=== PATIENT | male | born 1935 | race Caucasian/White ===

== ENCOUNTER 2016-10-21 00:24 | Inpatient (IN) | payer OTHER ==
[~2016-10-21] VITALS: Ht 182.9 cm; Wt 90.0 kg
[~2016-10-21 00:24] MED LIST: COMBIVIR1 TAB PO; FLONASE AL50 MCG/ACT IN; OMEPRAZOLE20 M1 PO; SINGULAIR10 MG PO
--- NOTE | 2016-10-21 04:35 | DIAGNOSTIC IMAGING REPORT ---
PROCEDURE: US ABDOMEN ULTRASOUND-LIMITED INDICATION: RUQ PAIN TECHNIQUE: Hutchins scale and color Doppler sonographic images of the abdomen were obtained. COMPARISON: CT abdomen/pelvis 07/07/2016 FINDINGS: There are gallstones in the gallbladder fundus with gallbladder wall thickening (4 mm) and gallbladder wall hyperemia. Normal liver. Head of the pancreas is normal. The remainder of the pancreas is obscured by overlying gas. Aorta and IVC are patent. Normal hepatopetal flow. Normal right kidney measures 10.9 cm. IMPRESSION: 1. Gallstones with gallbladder wall thickening and hyperemia, suspicious for acute cholecystitis 2. Results discussed with Dr. Cheema
--- NOTE | 2016-10-21 04:44 | ED NURSING NOTES ---
Clinical Report - Nurses [facility] [address] [place] [address] 10/21/2016 0:24 Patient: PIOTR CRAWLEY TRIAGE Triage time 00:45 Oct 21 2016. Acuity: LEVEL 3. Chief Complaint: ABDOMINAL PAIN, NAUSEA and VOMITING. Alert. CARLOS COMA SCORE: Carlos Coma Scale: 15- eyes open spontaneously (4); best verbal response- oriented x 4 (5); best motor response- obeys commands (6). --01:07 Alvin Powell R.N. 00:45 10/21/16. BP: 183/84. HR: 51. RR: 18. O2 saturation: 97%. Temp: 98.4 F (oral). Pain level now: 7/10. Additional comments: Abdominal Pain. --01:07 Alvin Powell R.N. Weight: 86.1 kg stated. Height/Length: 72 inches Per Patient. BMI: 25.8. --00:45 Alvin Powell R.N. Medications Omeprazole Oral 40 mg, daily. --00:51 Alvin Powell R.N. Tums Oral, as needed. --00:52 Alvin Powell R.N. Montelukast Sodium Oral 10 mg, at bedtime. --00:53 Alvin Powell R.N. Diane-[place] Plus Day/Night Oral. --00:55 Alvin Powell R.N. Medication/allergy information source: the patient. --01:07 Alvin Powell R.N. Allergies Penicillins. Definite Moderate(hives) --00:57 Alvin Powell R.N. History Arrived by private vehicle. Historian: patient. Unaccompanied. Primary physician (Chanel Martin). ( Abdominal Pain associated with nausea. Pt states that he had similar pain over a year ago and was told that he had cholelithiasis but the surgeon wouldn't do surgery because his HR was too slow. Today he ate donuts for breakfast and italian fries about 8 hours ago and two pieces of fried chicken.). This started yesterday. Onset. (about 8 hours ago). He has had nausea and abdominal pain. Treatment CUSTOMER QUALITY ENGINEER: Symptoms did not improve after treatment. (Omeprazole and AlkaSeltzer). PAST MEDICAL HX: Immunizations: up-to-date. SOCIAL HX: Never smoker. Alcohol use. Last drink was 6 years ago. No drug use. No recent travel. No infectious disease exposure. ABUSE ASSESSMENT: No report of abuse. FALL RISK ASSESSMENT: Fall risk assessment completed. No fall risk identified. NUTRITIONAL RISK ASSESSMENT: The nutritional risk assessment revealed no deficiencies. FUNCTIONAL ASSESSMENT: Functional assessment: no impairments noted. LEARNING NEEDS ASSESSMENT: The learning needs assessment revealed no barriers. SKIN INTEGRITY ASSESSMENT: Skin integrity risk assessment completed. No skin integrity risk identified. --01:07 Alvin Powell R.N. PROBLEMS: Esophageal Varices [Chronic]. --00:48 Alvin Powell R.N. Nausea. Cholelithiasis. Abdominal Pain. Vomiting. Copd. --00:48 Alvin Powell R.N. BPH. --01:07 Alvin Powell R.N. ADDITIONAL SURGERIES: Duodenal Tumors removed . Esophageal Dilatation [2016]. --00:49 Alvin Powell R.N. Interventions ID and allergy band on patient. To treatment room. --01:07 Alvin Powell R.N. PHYSICAL ASSESSMENT Ambulatory to room. GENERAL / NEURO / PSYCH: Alert. Oriented X 4. HEENT: Mucous membranes are pink. RESPIRATORY: Respirations not labored. CVS: Cardiac rhythm: sinus bradycardia; occasional ectopic beats. Capillary refill less than 2 seconds. GI / : The patient has had nausea. Abdominal tenderness. SKIN: Skin is warm and dry. --01:09 Alvin Powell R.N. NURSING PROGRESS NOTES 00:58 10/21/2016 Zofran ODT (Ondansetron) PO Oral Disintegrating Tablets 4 mg given. Allergies verified and confirmed 5 rights. --01:08 Alvin Powell R.N. Monitoring of patient in place. Patient gowned. Reassurance given. Patient identifiers checked. Call light placed in reach. Side rails up x 1. Bed placed in lowest position. Brakes of bed on. Patient ready for evaluation- chart flagged and ED physician notified. --01:09 Alvin Powell R.N. 01:18 10/21/2016 Site #1 started via IV in the right wrist with an 20g angiocath, with aseptic technique and good blood return; one attempt. Blood drawn: rainbow set. Labeled in the presence of the patient and sent to the lab. Saline lock flushed with 10 mL saline. --01:21 Alvin Palacios R.N. 01:19 10/21/2016 Demerol (Meperidine HCl) IVP 25 mg given over 2 minute(s) via site #1. Allergies verified and confirmed 5 rights. IV patency established. IV site checked: no pain, redness, or swelling. IV flushed thoroughly pre- and post-medication administration. --01:21 Alvin Palacios R.N. ( Report received from Alvin Monae). --01:35 Tai Frances R.N. EKG time: (0142). EKG was ordered, performed by a tech and shown to the ED physician. --01:43 Julian Espinoza, ER Wire Winding Machine Operator 01:59 10/21/16. BP: 180/81. HR: 45. RR: 18. O2 saturation: 99%. --01:59 Tai Frances R.N. 02:14 10/21/2016 Zofran (Ondansetron HCl) IVP 4 mg given over 2 minute(s) via site #1. Allergies verified and confirmed 5 rights. IV patency established. IV site checked: no pain, redness, or swelling. IV flushed thoroughly pre- and post-medication administration. IVP given by RN. --02:14 Tai Frances R.N. 03:59 10/21/2016 Demerol (Meperidine HCl) IVP 25 mg given over 2 minute(s) via site #1. Allergies verified and confirmed 5 rights. IV patency established. IV site checked: no pain, redness, or swelling. IV flushed thoroughly pre- and post-medication administration. IVP given by RN. --03:59 Tai Frances R.N. 04:00 10/21/2016 PROMETHAZINE IVP 25 mg given over 2 minute(s) via site #1. Allergies verified and confirmed 5 rights. IV patency established. IV site checked: no pain, redness, or swelling. IV flushed thoroughly pre- and post-medication administration. IVP given by RN. --04:00 Tai Frances R.N. 03:06 10/21/16. BP: 160/97. HR: 49. O2 saturation: 100%. --04:27 Tai Frances R.N. 04:07 10/21/16. BP: 163/78. HR: 53. O2 saturation: 99%. --04:28 Tai Frances R.N. 04:56 10/21/2016 Started 500 mg of Flagyl (MetroNIDAZOLE in NaCl) IVPB in bag #1 100 mL; at 100 mL/hr over 1 hour(s) via site #1 via IV pump. Allergies verified and confirmed 5 rights. IV patency established. IV site checked: no pain, redness, or swelling. IV flushed thoroughly pre- and post-medication administration. --04:56 Tai Frances R.N. 05:17 10/21/2016 Started 500 mg of Levofloxacin IVPB in bag #1 100 mL; at 100 mL/hr over 1 hour(s) via site #1 via IV pump. Allergies verified and confirmed 5 rights. IV patency established. IV site checked: no pain, redness, or swelling. IV flushed thoroughly pre- and post-medication administration. --05:17 Tai Frances R.N. 05:22 10/21/16. BP: 115/61. --05:32 Tai Frances R.N. 05:34 10/21/2016 Started bag #1 1000 mL IV Fluids IV D5W 1/2 NS AND KCL 20 MEQ (KCl-NaCl in D5W); at 150 mL/hr over 10 hour(s) via site #1 via IV pump. Allergies verified and confirmed 5 rights. IV patency established. IV site checked: no pain, redness, or swelling. IV flushed thoroughly pre- and post-medication administration. --05:34 Tai Frances R.N. DISPOSITION / DISCHARGE No learning barriers present. Admitted. Report was given to a nurse via a phone call. All questions were answered. Report was acknowledged. Patient's personal items include: shirt, pants, glasses, contacts and wallet; items were placed in belongings bag, given to the patient and transported with the patient. --05:28 Tai Frances R.N. 05:31 10/21/16. BP: 128/69. HR: 51. RR: 16. O2 saturation: 98%. Temp: 98.9 F. Pain level now 0/10. --05:32 Tai Frances R.N. Departure time: 0539. ( Report given to RN to start d5 1/2ns with 20 of K on arrival to floor). --05:55 Tai Frances R.N. Locked/Released at 10/23/2016 10:33 by Angie Deleon R.N.
--- NOTE | 2016-10-21 04:44 | ED CLINICAL REPORT ---
Clinical Report - Physicians/Mid Levels [facility] [address] [place] [address] 10/21/2016 0:24 [id number] Time Seen: 00:55; initial patient contact. Arrived- By private vehicle. Historian- patient. HISTORY OF PRESENT ILLNESS Chief Complaint: ABDOMINAL PAIN. At its maximum, severity described as moderate. When seen in the E.D., severity described as moderate. Modifying factors- worsened by food. Not relieved by anything. This started just prior to arrival. It is described as "pain". No radiation. It is described as located in the right upper quadrant. The patient has had nausea and vomiting. No loss of appetite or diarrhea. No recent travel. Similar symptoms previously: Once. Recent medical care: The patient was seen recently by a health care provider (Was scheduled for Lap [facility] last month due to cholelithiasis, cancelled due to heart-block). REVIEW OF SYSTEMS No constipation, hematemesis, difficulty with urination, pain with urination or fever. No chills. All systems otherwise negative, except as recorded above. PAST HISTORY Esophageal Varices Nausea. Cholelithiasis. Abdominal Pain. Vomiting. Copd. BPH. SURGERIES: Duodenal Tumors removed . Esophageal Dilatation. SOCIAL HISTORY Never smoker. No alcohol use or drug use. ADDITIONAL NOTES The nursing notes have been reviewed with agreement regarding the chief complaint, PMH and patient medications and allergies. PHYSICAL EXAM Vital Signs: 10/21/2016 00:45 BP: 183/84. HR: 51. RR: 18. O2 saturation: 97%. Temp: 98.4 F. Pain level now: 7/10. Have been reviewed. Hypertensive. Bradycardic. Respiratory rate normal. Temperature normal. Oxygen saturation normal. Appearance: Alert. Oriented X3. No acute distress. Eyes: Eyes normal inspection. No scleral icterus. ENT: Pharynx normal. CVS: Bradycardia. Heart sounds normal. Rhythm normal. Respiratory: No respiratory distress. Breath sounds normal. Chest nontender. Abdomen: Soft. Moderate tenderness in the right upper quadrant. Positive Arce's sign. No guarding or rebound tenderness. Bowel sounds normal. No organomegaly. No mass. Back: Normal inspection. No CVA tenderness. Skin: Normal skin color. Extremities: No lower extremity edema. Neuro: Oriented X 3. LABS, X-RAYS, AND EKG EKG: EKG time: (0142). Wide-complex bradycardia (ventricular rate 52). Sinus bradycardia. Normal P waves. First-degree atrioventricular block. Wide QRS. RBBB. Left axis deviation. Normal ST and T waves, QT and QTc. EKG unchanged when compared with prior EKG. (Aug 20 2016). The study has been interpreted contemporaneously by me. The study has been independently viewed by me. The EKG appears to be a good tracing. Interpretation time: 0142. Abdominal Sonogram: (1. Gallstones with gallbladder wall thickening and hyperemia, suspicious for acute cholecystitis). Study included the gallbladder. The study was interpreted by the radiologist and discussed with the radiologist. Interpretation time: 04:40. Laboratory Tests: UA-Culture if indicated: (YARA: 10/21/2016 01:47) ( [facility] [place] [facility] 02:05) Final results Test Result Flag Units (Reference) URINE COLOR YELLOW URINE APPEARANCE CLEAR URINE GLUCOSE NEGATIVE (NEGATIVE) URINE BILIRUBIN NEGATIVE (NEGATIVE) URINE KETONE NEGATIVE (NEGATIVE) URINE SPECIFIC GRAVITY 1.010 (1.010-1.030) URINE PH 8.5 H (5.0-8.0) URINE PROTEIN NEGATIVE (NEGATIVE) URINE UROBILINOGEN 1.0 EU/dL (0.2-1.0) URINE NITRITE NEGATIVE (NEGATIVE) URINE BLOOD NEGATIVE (NEGATIVE) URINE LEUK ESTERASE NEGATIVE (NEGATIVE) URINE RBC 0-1 rbc/hpf (0-1) URINE WBC 0-1 wbc/hpf (0-1) URINE EPITHELIAL CELLS 0-1 EPI/hpf (0-5) URINE BACTERIA NONE SEEN (NONE SEEN) URINE COMMENT CULT NOT INDICATED URINE CULTURES ARE SET-UP BASED ON THE FOLLOWING CRITERIA:POSITIVE NITRITEPOSITIVE LEUKOCYTE ESTERASEGREATER THAN 10 WHITE BLOOD CELLSMODERATE (2+) OR GREATER BACTERIA CBC w Diff: (YARA: 10/21/2016 01:15) ( [facility] 10/21/2016 01:29) Final results Test Result Flag Units (Reference) WHITE BLOOD COUNT 5.9 K/uL (4.5-11.5) RED BLOOD COUNT 4.85 M/uL (4.50-5.90) HEMOGLOBIN 13.0 L gm/dL (13.5-17.5) HEMATOCRIT 40.7 L % (41.0-53.0) MEAN CELL VOLUME 84 fL (80-100) MEAN CORPUSCULAR HGB 27 pg (26-34) MEAN CORPUSCULAR HGB CONC 32 g/dL (31-37) RED CELL DISTRIBUTION WIDTH 18.0 H % (11.6-14.8) PLATELET COUNT 271 K/uL (150-400) NEUTROPHIL % 51.2 % (50-75) LYMPH % 34.6 % (25-40) MONO % 8.4 % (3-14) EOSINOPHIL % 5.1 H % (0-4) BASOPHIL % 0.7 % (0-2) CMP: (YARA: 10/21/2016 01:15) ( Msg[facility]cv[facility] 10/21/2016 01:42) Final results Test Result Flag Units (Reference) GLUCOSE 105 mg/dL (70-110) BUN 13 mg/dL (7-18) CREATININE 1.0 mg/dL (0.6-1.3) Estimated GFR >60 mL/min Estimated GFR- >60 mL/min Note: Persistent reduction over 3 months in eGFR<60 mL/min/1.73 m2 defines CKD. Patients with eGFR values>=60 mL/min/1.73 m2 may also have CKD if evidence ofpersistent proteinuria. Additional information may be foundat www.kidney.org. SODIUM 143 mmol/L (136-145) POTASSIUM 3.9 mmol/L (3.5-5.1) CHLORIDE 109 H mmol/L (98-107) CARBON DIOXIDE 24 mmol/L (21-32) CALCIUM 8.5 mg/dL (8.5-10.1) TOTAL PROTEIN 6.3 L g/dL (6.4-8.2) ALBUMIN 3.2 L g/dL (3.3-5.0) BILIRUBIN, TOTAL 0.3 mg/dL (0.0-1.0) ALKALINE PHOSPHATASE 97 U/L (46-116) AST (SGOT) 12 L U/L (15-37) ALT (SGPT) 17 U/L (12-78) LIPASE 749 H U/L (73-393) AMYLASE 104 U/L (25-115) . PROGRESS AND PROCEDURES Course of Care: 10/21/2016 04:07 BP: 163/78. HR: 53. O2 saturation: 99%. Vital Signs: have been reviewed. Hypertensive. Bradycardic. Oxygen saturation normal. Discussed case with on-call health care provider, (call returned 04:43 Dr. Topete. Admit and start Abx and will take to OR later.). Reviewed test results and need for additional work-up. Orders dictated to me. Health care provider will see patient in hospital. Discussed case with on-call health care provider, (call placed call placed 04:50 Dr. Moulton made aware of Dr. Martin's patient being admitted for surgery as a courtesy.). Disposition: Admitted to Acute Care. Condition: good. Admit decision based on need for IV antibiotics, pain control and surgery. CLINICAL IMPRESSION Acute cholecystitis with cholelithiasis. No obstruction or choledocholithiasis. Abnormal EKG: left axis deviation, first degree heart block and right bundle branch block. Sinus bradycardia. INSTRUCTIONS Follow-up: Screening today revealed the patient's blood pressure to be in the hypertensive range. The patient was admitted and blood pressure will be managed during the admission. (Electronically signed by Jere Cheema Dr. 10/21/2016 4:52)
--- NOTE | 2016-10-21 04:44 | ED ORDER SUMMARY ---
..... Patient: PIOTR CRAWLEY OrderSheet [facility] VisitID: [id number] [place] [address] 80y, M Registration Date/Time: 10/21/2016 ORDER SHEET Weight: 86.1 kg (stated) Allergies: Penicillins GENERAL ORDERS: CBC w Diff Urgent (00:56 10/21/2016 Librado Alberto) (Ack 0:59 CHagerty ER Hogshead Mat Assembler) (1:21 JQuivey R.N.) CMP Urgent (00:56 10/21/2016 Librado Alberto) (Ack 0:59 CHagerty ER Hogshead Mat Assembler) (1:21 JQuivey R.N.) UA-Culture if indicated Urgent (00:56 10/21/2016 Librado Alberto) (Ack 0:59 CHagerty ER Hogshead Mat Assembler) (3:35 CHagerty ER Hogshead Mat Assembler) Amylase Urgent (00:56 10/21/2016 Librado Alberto) (Ack 0:59 CHagerty ER Hogshead Mat Assembler) (1:21 JQuivey R.N.) Lipase Urgent (00:56 10/21/2016 Librado Alberto) (Ack 0:59 CHagerty ER Hogshead Mat Assembler) (1:21 JQuivey R.N.) US Abdomen Limited (Yes) Urgent (02:13 10/21/2016 Librado Alberto) (Ack 2:16 CHagerty ER Hogshead Mat Assembler) (3:35 CHagerty ER Hogshead Mat Assembler) NPO (04:51 10/21/2016 Librado Alberto) (5:21 DBeyer R.N.) MEDICATION ORDERS: Zofran ODT PO 4 mg (NOW) (00:55 10/21/2016 Librado Alberto) (1:08 Kinga R.N.) Promethazine IV 25 mg (HIGH ALERT MEDICATION, NOW) (03:53 10/21/2016 Librado Alberto) (4:00 Argeliaer R.N.) IV FLUIDS: IV Saline Lock (00:56 10/21/2016 Librado Alberto) (Ack 1:14 JQuivey R.N.) (1:21 JQuivey R.N.) Demerol IV 25 mg (HIGH ALERT MEDICATION, NOW) (01:16 10/21/2016 Librado Alberto) (1:21 Geraldo McdermottN.) Zofran IV 4 mg (NOW) (02:10 10/21/2016 Librado Alberto) (2:14 Jay Monae.N.) Demerol IV 25 mg (HIGH ALERT MEDICATION, NOW) (03:53 10/21/2016 Librado Alberto) (3:59 Jay Monae.N.) Levofloxacin IV 500 mg/100mL (NOW) (04:41 10/21/2016 Librado Alberto) (5:17 Jay Monae.N.) Flagyl IV 500 mg/100mL (NOW) (04:41 10/21/2016 Librado Alberto) (4:56 Jay Monae.N.) IV D5W 1/2 NS and KCl 20 mEq : initial bolus none -, then 150 mL/hr for X1 (NOW) (05:24 10/21/2016 Librado Alberto) (5:34 Jay R.N.) ORDER SHEET NOTES: [Electronically signed by Jere Cheema Dr. (04:52 10/21/2016)] [Electronically signed by Angie Deleon R.N. (10:33 10/23/2016)] [Electronically locked/signed by Angie Deleon R.N. (10:33 10/23/2016)]
--- NOTE | 2016-10-21 04:44 | ED ORDER SUMMARY ---
..... Patient: PIOTR CRAWLEY OrderSheet [facility] VisitID: [id number] [place] [address] 80y, M Registration Date/Time: 10/21/2016 ORDER SHEET Weight: 86.1 kg (stated) Allergies: Penicillins GENERAL ORDERS: CBC w Diff Urgent (00:56 10/21/2016 Librado Alberto) (Ack 0:59 CHagerty ER Export Administrator) (1:21 JQuivey R.N.) CMP Urgent (00:56 10/21/2016 Librado Alberto) (Ack 0:59 CHagerty ER Export Administrator) (1:21 JQuivey R.N.) UA-Culture if indicated Urgent (00:56 10/21/2016 Librado Alberto) (Ack 0:59 CHagerty ER Export Administrator) (3:35 CHagerty ER Export Administrator) Amylase Urgent (00:56 10/21/2016 Librado Alberto) (Ack 0:59 CHagerty ER Export Administrator) (1:21 JQuivey R.N.) Lipase Urgent (00:56 10/21/2016 Librado Alberto) (Ack 0:59 CHagerty ER Export Administrator) (1:21 JQuivey R.N.) US Abdomen Limited (Yes) Urgent (02:13 10/21/2016 Librado Alberto) (Ack 2:16 CHagerty ER Export Administrator) (3:35 CHagerty ER Export Administrator) NPO (04:51 10/21/2016 Librado Alberto) (5:21 DBeyer R.N.) MEDICATION ORDERS: Zofran ODT PO 4 mg (NOW) (00:55 10/21/2016 Librado Alberto) (1:08 Kinga R.N.) Promethazine IV 25 mg (HIGH ALERT MEDICATION, NOW) (03:53 10/21/2016 Librado Alberto) (4:00 Argeliaer R.N.) IV FLUIDS: IV Saline Lock (00:56 10/21/2016 Librado Alberto) (Ack 1:14 JQuivey R.N.) (1:21 JQuivey R.N.) Demerol IV 25 mg (HIGH ALERT MEDICATION, NOW) (01:16 10/21/2016 Librado Alberto) (1:21 Geraldo McdermottN.) Zofran IV 4 mg (NOW) (02:10 10/21/2016 Librado Alberto) (2:14 Jay Monae.N.) Demerol IV 25 mg (HIGH ALERT MEDICATION, NOW) (03:53 10/21/2016 Librado Alberto) (3:59 Jay Monae.N.) Levofloxacin IV 500 mg/100mL (NOW) (04:41 10/21/2016 Librado Alberto) (5:17 Jay Monae.N.) Flagyl IV 500 mg/100mL (NOW) (04:41 10/21/2016 Librado Alberto) (4:56 Jay Monae.N.) IV D5W 1/2 NS and KCl 20 mEq : initial bolus none -, then 150 mL/hr for X1 (NOW) (05:24 10/21/2016 Librado Alberto) (5:34 Jay R.N.) ORDER SHEET NOTES: [Electronically signed by Jere Cheema Dr. (04:52 10/21/2016)] [Electronically signed by Angie Deleon R.N. (10:33 10/23/2016)] [Electronically locked/signed by Angie Deleon R.N. (10:33 10/23/2016)]
--- NOTE | 2016-10-21 04:44 | ED NURSING NOTES ---
Clinical Report - Nurses [facility] [address] [place] [address] 10/21/2016 0:24 Patient: PIOTR CRAWLEY TRIAGE Triage time 00:45 Oct 21 2016. Acuity: LEVEL 3. Chief Complaint: ABDOMINAL PAIN, NAUSEA and VOMITING. Alert. CARLOS COMA SCORE: Carlos Coma Scale: 15- eyes open spontaneously (4); best verbal response- oriented x 4 (5); best motor response- obeys commands (6). --01:07 Alvin Powell R.N. 00:45 10/21/16. BP: 183/84. HR: 51. RR: 18. O2 saturation: 97%. Temp: 98.4 F (oral). Pain level now: 7/10. Additional comments: Abdominal Pain. --01:07 Alvin Powell R.N. Weight: 86.1 kg stated. Height/Length: 72 inches Per Patient. BMI: 25.8. --00:45 Alvin Powell R.N. Medications Omeprazole Oral 40 mg, daily. --00:51 Alvin Powell R.N. Tums Oral, as needed. --00:52 Alvin Powell R.N. Montelukast Sodium Oral 10 mg, at bedtime. --00:53 Alvin Powell R.N. [place] Plus Day/Night Oral. --00:55 Alvin Powell R.N. Medication/allergy information source: the patient. --01:07 Alvin Powell R.N. Allergies Penicillins. Definite Moderate(hives) --00:57 Alvin Powell R.N. History Arrived by private vehicle. Historian: patient. Unaccompanied. Primary physician (Chanel Martin). ( Abdominal Pain associated with nausea. Pt states that he had similar pain over a year ago and was told that he had cholelithiasis but the surgeon wouldn't do surgery because his HR was too slow. Today he ate donuts for breakfast and georgian fries about 8 hours ago and two pieces of fried chicken.). This started yesterday. Onset. (about 8 hours ago). He has had nausea and abdominal pain. Treatment ASSET MANAGER: Symptoms did not improve after treatment. (Omeprazole and AlkaSeltzer). PAST MEDICAL HX: Immunizations: up-to-date. SOCIAL HX: Never smoker. Alcohol use. Last drink was 6 years ago. No drug use. No recent travel. No infectious disease exposure. ABUSE ASSESSMENT: No report of abuse. FALL RISK ASSESSMENT: Fall risk assessment completed. No fall risk identified. NUTRITIONAL RISK ASSESSMENT: The nutritional risk assessment revealed no deficiencies. FUNCTIONAL ASSESSMENT: Functional assessment: no impairments noted. LEARNING NEEDS ASSESSMENT: The learning needs assessment revealed no barriers. SKIN INTEGRITY ASSESSMENT: Skin integrity risk assessment completed. No skin integrity risk identified. --01:07 Alvin Powell R.N. PROBLEMS: Esophageal Varices [Chronic]. --00:48 Alvin Powell R.N. Nausea. Cholelithiasis. Abdominal Pain. Vomiting. Copd. --00:48 Alvin Powell R.N. BPH. --01:07 Alvin Powell R.N. ADDITIONAL SURGERIES: Duodenal Tumors removed . Esophageal Dilatation [2016]. --00:49 Alvin Powell R.N. Interventions ID and allergy band on patient. To treatment room. --01:07 Alvin Powell R.N. PHYSICAL ASSESSMENT Ambulatory to room. GENERAL / NEURO / PSYCH: Alert. Oriented X 4. HEENT: Mucous membranes are pink. RESPIRATORY: Respirations not labored. CVS: Cardiac rhythm: sinus bradycardia; occasional ectopic beats. Capillary refill less than 2 seconds. GI / : The patient has had nausea. Abdominal tenderness. SKIN: Skin is warm and dry. --01:09 Alvin Powell R.N. NURSING PROGRESS NOTES 00:58 10/21/2016 Zofran ODT (Ondansetron) PO Oral Disintegrating Tablets 4 mg given. Allergies verified and confirmed 5 rights. --01:08 Alvin Powell R.N. Monitoring of patient in place. Patient gowned. Reassurance given. Patient identifiers checked. Call light placed in reach. Side rails up x 1. Bed placed in lowest position. Brakes of bed on. Patient ready for evaluation- chart flagged and ED physician notified. --01:09 Alvin Powell R.N. 01:18 10/21/2016 Site #1 started via IV in the right wrist with an 20g angiocath, with aseptic technique and good blood return; one attempt. Blood drawn: rainbow set. Labeled in the presence of the patient and sent to the lab. Saline lock flushed with 10 mL saline. --01:21 Alvin Palacios R.N. 01:19 10/21/2016 Demerol (Meperidine HCl) IVP 25 mg given over 2 minute(s) via site #1. Allergies verified and confirmed 5 rights. IV patency established. IV site checked: no pain, redness, or swelling. IV flushed thoroughly pre- and post-medication administration. --01:21 Alvin Palacios R.N. ( Report received from Alvin Monae). --01:35 Tai Frances R.N. EKG time: (0142). EKG was ordered, performed by a tech and shown to the ED physician. --01:43 Julian Espinoza, ER Livestock Agent 01:59 10/21/16. BP: 180/81. HR: 45. RR: 18. O2 saturation: 99%. --01:59 Tai Frances R.N. 02:14 10/21/2016 Zofran (Ondansetron HCl) IVP 4 mg given over 2 minute(s) via site #1. Allergies verified and confirmed 5 rights. IV patency established. IV site checked: no pain, redness, or swelling. IV flushed thoroughly pre- and post-medication administration. IVP given by RN. --02:14 Tai Frances R.N. 03:59 10/21/2016 Demerol (Meperidine HCl) IVP 25 mg given over 2 minute(s) via site #1. Allergies verified and confirmed 5 rights. IV patency established. IV site checked: no pain, redness, or swelling. IV flushed thoroughly pre- and post-medication administration. IVP given by RN. --03:59 Tai Frances R.N. 04:00 10/21/2016 PROMETHAZINE IVP 25 mg given over 2 minute(s) via site #1. Allergies verified and confirmed 5 rights. IV patency established. IV site checked: no pain, redness, or swelling. IV flushed thoroughly pre- and post-medication administration. IVP given by RN. --04:00 Tai Frances R.N. 03:06 10/21/16. BP: 160/97. HR: 49. O2 saturation: 100%. --04:27 Tai Frances R.N. 04:07 10/21/16. BP: 163/78. HR: 53. O2 saturation: 99%. --04:28 Tai Frances R.N. 04:56 10/21/2016 Started 500 mg of Flagyl (MetroNIDAZOLE in NaCl) IVPB in bag #1 100 mL; at 100 mL/hr over 1 hour(s) via site #1 via IV pump. Allergies verified and confirmed 5 rights. IV patency established. IV site checked: no pain, redness, or swelling. IV flushed thoroughly pre- and post-medication administration. --04:56 Tai Frances R.N. 05:17 10/21/2016 Started 500 mg of Levofloxacin IVPB in bag #1 100 mL; at 100 mL/hr over 1 hour(s) via site #1 via IV pump. Allergies verified and confirmed 5 rights. IV patency established. IV site checked: no pain, redness, or swelling. IV flushed thoroughly pre- and post-medication administration. --05:17 Tai Frances R.N. 05:22 10/21/16. BP: 115/61. --05:32 Tai Frances R.N. 05:34 10/21/2016 Started bag #1 1000 mL IV Fluids IV D5W 1/2 NS AND KCL 20 MEQ (KCl-NaCl in D5W); at 150 mL/hr over 10 hour(s) via site #1 via IV pump. Allergies verified and confirmed 5 rights. IV patency established. IV site checked: no pain, redness, or swelling. IV flushed thoroughly pre- and post-medication administration. --05:34 Tai Frances R.N. DISPOSITION / DISCHARGE No learning barriers present. Admitted. Report was given to a nurse via a phone call. All questions were answered. Report was acknowledged. Patient's personal items include: shirt, pants, glasses, contacts and wallet; items were placed in belongings bag, given to the patient and transported with the patient. --05:28 Tai Frances R.N. 05:31 10/21/16. BP: 128/69. HR: 51. RR: 16. O2 saturation: 98%. Temp: 98.9 F. Pain level now 0/10. --05:32 Tai Frances R.N. Departure time: 0539. ( Report given to RN to start d5 1/2ns with 20 of K on arrival to floor). --05:55 Tai Frances R.N. Locked/Released at 10/23/2016 10:33 by Angie Deleon R.N.
[2016-10-21 06:08] VITALS: BP 128/61
[2016-10-21] MEDS ORDERED: ALKA-SELTZER PL25 MG PO (07:37)
[2016-10-21] MEDS ORDERED: TUMS500 MG PO (07:38)
[2016-10-21 10:49] VITALS: BP 124/62
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
[2016-10-21 14:22] VITALS: BP 121/60
[2016-10-21 18:26] VITALS: BP 139/62
[2016-10-21 22:45] VITALS: BP 118/68
[2016-10-22] VITALS (10 sets, daily range): BP systolic 122–149; BP diastolic 57–73
--- NOTE | 2016-10-22 14:18 | DIAGNOSTIC IMAGING REPORT ---
PROCEDURE: XR INTRAOPERATIVE LAP TARUN INDICATION: LAPCHOLE WITH IOC TECHNIQUE: Intraoperative fluoroscopy provided for Dr. Le performing an intraoperative cholangiogram following cholecystectomy. Total fluoroscopy time 7-seconds Cumulative dose 2.1 mGy. COMPARISON: None. FINDINGS: Single intraoperative fluoroscopic spot image of the right upper quadrant of the abdomen demonstrate cannulation of the cystic duct stump and opacification of the intrahepatic and extrahepatic biliary tree. There are no filling defects. There is normal passage of contrast into the duodenum. IMPRESSION: 1. Negative intraoperative cholangiogram.
[2016-10-22] MEDS ORDERED: NORCO1 TA1 PO (14:19)
--- NOTE | 2016-10-22 14:21 | Provider's Discharge Care Plan ---
Problem, Goal, Plan Problem List 1. S/P laparoscopic cholecystectomy 2. Bifascicular block 3. Bradycardia
--- NOTE | 2016-10-22 14:21 | Provider's Discharge Care Plan ---
Problem, Goal, Plan Problem List 1. S/P laparoscopic cholecystectomy 2. Bifascicular block 3. Bradycardia
--- NOTE | 2016-10-22 21:28 | OPERATIVE REPORT ---
DATE OF SURGERY: 10/22/2016 SURGEON: Feliz Le MD GEAR INSPECTOR: Jinny Enrique III, MD PREOPERATIVE DIAGNOSIS: 1. Cholelithiasis with acute cholecystitis POSTOPERATIVE DIAGNOSIS: 1. Cholelithiasis with acute cholecystitis PROCEDURE PERFORMED: 1. Laparoscopic cholecystectomy with cholangiography ANESTHESIA: General. COMPLICATIONS: No intraoperative complications were encountered. INDICATIONS: The patient is an 80-year-old man presenting with severe unrelenting right upper quadrant abdominal pain and radiologic studies indicating acute cholecystitis. SURGICAL TECHNIQUE: The patient was taken to the operating room where a general anesthetic was administered and the patient prepped and draped in the usual sterile fashion. No Andino catheter was used; however, an orogastric tube, IV antibiotics , and sequential compression devices were in place. A local anesthetic of 0.5% Marcaine with epinephrine was utilized at each incision site. An infraumbilical incision was made and a Veress needle used to insufflate the abdominal cavity. A 10 mm cannula was passed and additional cannulae placed in the upper abdomen in the usual locations. The gallbladder was found to be tightly distended and erythematous consistent with acute cholecystitis. The gallbladder was elevated and the cystic duct meticulously dissected out, as well as the cystic artery. A clip was placed in neck of the gallbladder and fluoroscopic cholangiogram carried out demonstrating free flow into duodenum and no filling defects. The cystic duct and artery were doubly clipped and divided and the gallbladder stripped from the gallbladder fossa using electrocautery. It was placed in a specimen bag and pulled into the upper midline trocar site where it was morcellated and extracted along with its stone material. The operative site was irrigated and found be hemostatic. All blood and fluid were suctioned away and additional Marcaine was instilled and gas was evacuated. A single [id number] 2-0 Vicryl was placed in the upper midline trocar site. This midline skin sites were closed with interrupted subcuticular 4-0 Vicryl. Steri-Strips and dressings were placed at all sites. The patient left in good condition.
--- NOTE | 2016-10-22 21:28 | OPERATIVE REPORT ---
DATE OF SURGERY: 10/22/2016 SURGEON: Feliz Le MD HVAC INSTRUCTOR: Jinny Enrique III, MD PREOPERATIVE DIAGNOSIS: 1. Cholelithiasis with acute cholecystitis POSTOPERATIVE DIAGNOSIS: 1. Cholelithiasis with acute cholecystitis PROCEDURE PERFORMED: 1. Laparoscopic cholecystectomy with cholangiography ANESTHESIA: General. COMPLICATIONS: No intraoperative complications were encountered. INDICATIONS: The patient is an 80-year-old man presenting with severe unrelenting right upper quadrant abdominal pain and radiologic studies indicating acute cholecystitis. SURGICAL TECHNIQUE: The patient was taken to the operating room where a general anesthetic was administered and the patient prepped and draped in the usual sterile fashion. No Andino catheter was used; however, an orogastric tube, IV antibiotics , and sequential compression devices were in place. A local anesthetic of 0.5% Marcaine with epinephrine was utilized at each incision site. An infraumbilical incision was made and a Veress needle used to insufflate the abdominal cavity. A 10 mm cannula was passed and additional cannulae placed in the upper abdomen in the usual locations. The gallbladder was found to be tightly distended and erythematous consistent with acute cholecystitis. The gallbladder was elevated and the cystic duct meticulously dissected out, as well as the cystic artery. A clip was placed in neck of the gallbladder and fluoroscopic cholangiogram carried out demonstrating free flow into duodenum and no filling defects. The cystic duct and artery were doubly clipped and divided and the gallbladder stripped from the gallbladder fossa using electrocautery. It was placed in a specimen bag and pulled into the upper midline trocar site where it was morcellated and extracted along with its stone material. The operative site was irrigated and found be hemostatic. All blood and fluid were suctioned away and additional Marcaine was instilled and gas was evacuated. A single [id number] 2-0 Vicryl was placed in the upper midline trocar site. This midline skin sites were closed with interrupted subcuticular 4-0 Vicryl. Steri-Strips and dressings were placed at all sites. The patient left in good condition.
[2016-10-23 02:10] VITALS: BP 131/68
[2016-10-23 06:49] VITALS: BP 137/77
[2016-10-23 07:25] VITALS: BP 130/69
--- NOTE | 2016-10-23 10:34 | ED DISCHARGE INSTRUCTIONS ---
Patient: PIOTR CRAWLEY General Instructions [facility] VisitID: [id number] [place] [address] 80y, M Registration Date/Time: 10/21/2016 Acute cholecystitis with cholelithiasis. No obstruction or choledocholithiasis. Abnormal EKG: left axis deviation, first degree heart block and right bundle branch block. Sinus bradycardia. INSTRUCTIONS Follow-up: Screening today revealed the patient's blood pressure to be in the hypertensive range. The patient was admitted and blood pressure will be managed during the admission. ADDITIONAL INFORMATION Cholecystitis (Confirmed) Your abdominal pain is due to an inflammation and possible infection in the gallbladder. The gallbladder is a small sac under the liver, which stores and releases bile. Bile is a fluid that aids in the digestion of fat. A gallstone may form in this sac and block the passage of bile fluid. This can lead to mild to severe abdominal pain, fever, nausea and vomiting. Home Care: Rest in bed and follow a clear liquid diet until the pain, nausea and vomiting have gone away. Antibiotics and other medicine may be prescribed. Take this exactly as directed. You may use ibuprofen (Motrin, Advil) or naproxen (Naprosyn, Aleve) to control pain, unless another medicine was prescribed. [NOTE: If you have chronic kidney disease or ever had a stomach ulcer or GI bleeding, talk with your doctor before using these medicines.] Fat in your diet makes the gallbladder contract and may cause increased pain. Therefore, avoid fat in your diet over the next two days and follow a low-fat diet thereafter. Follow Up an infection in the gallbladder is a serious problem and must be watched carefully. See your doctor or return here for another exam in the next 1 to 2 days, or as directed by our staff. Once cholecystitis has occurred, removal of the gallbladder is usually required to prevent a recurrence. You can discuss this at your follow-up visit. Get Prompt Medical Attention if any of the following occur: Repeated vomiting Swelling of the abdomen Pain that lasts over 6 hours Fever of 100.4F (38C) or higher, or as directed by your healthcare provider Weakness, dizziness or fainting Dark urine or light colored stools Yellow color of the skin or eyes Chest, arm, back, neck or jaw pain You have been given the following additional information: Cholecystitis, Confirmed (Electronically signed by Jere Cheema Dr. 10/21/2016 4:52)
--- NOTE | 2016-10-23 10:34 | ED MAR SUMMARY ---
..... Medication Administration Record [facility] [address] [place] [address] Patient: PIOTR CRAWLEY Visit ID: [id number] 80y, M Weight: 86.1 kg Height/Length: 72 in BMI: 25.8 ALLERGIES: Penicillins Given 00:58 10/21/2016 Alvin Powell R.N. Medication Administered: ZOFRAN ODT [PO] (ONDANSETRON), Dose: 4 mg Oral Disintegrating Tablets PO. Medication Ordered: Zofran ODT PO 4 mg (NOW). Given 01:19 10/21/2016 Alvin Palacios R.N. Medication Administered: DEMEROL [IVP] (MEPERIDINE HCL), Dose: 25 mg IVP over 2 minute(s), Site: #1 right wrist. Medication Ordered: Demerol IV 25 mg (HIGH ALERT MEDICATION, NOW). Given 02:14 10/21/2016 Tai Frances R.N. Medication Administered: ZOFRAN [IVP] (ONDANSETRON HCL), Dose: 4 mg IVP over 2 minute(s), Site: #1 right wrist. Medication Ordered: Zofran IV 4 mg (NOW). Given 03:59 10/21/2016 Tai Frances R.N. Medication Administered: DEMEROL [IVP] (MEPERIDINE HCL), Dose: 25 mg IVP over 2 minute(s), Site: #1 right wrist. Medication Ordered: Demerol IV 25 mg (HIGH ALERT MEDICATION, NOW). Given 04:00 10/21/2016 Tai Frances R.N. Medication Administered: PROMETHAZINE [IVP], Dose: 25 mg IVP over 2 minute(s), Site: #1 right wrist. Medication Ordered: Promethazine IV 25 mg (HIGH ALERT MEDICATION, NOW). Start 04:56 10/21/2016 Tai Frances R.N. Medication Administered: FLAGYL [IVPB] (METRONIDAZOLE IN NACL), Dose: 500 mg IVPB over 1 hour(s), Rate: 100 mL/hr, Dispensed: 100 mL bag, Site: #1 right wrist. Medication Ordered: Flagyl IV 500 mg/100mL (NOW). Start 05:17 10/21/2016 Tai Frances, RIndiaN. Medication Administered: LEVOFLOXACIN [IVPB], Dose: 500 mg IVPB over 1 hour(s), Rate: 100 mL/hr, Dispensed: 100 mL bag, Site: #1 right wrist. Medication Ordered: Levofloxacin IV 500 mg/100mL (NOW). Start 05:34 10/21/2016 Tai Frances, RIndiaN. Medication Administered: IV D5W 1/2 NS AND KCL 20 MEQ (KCL-NACL IN D5W), Dose: IV Fluids over 10 hour(s), Rate: 150 mL/hr, Dispensed: 1000 mL bag, Site: #1 right wrist. Medication Ordered: IV D5W 1/2 NS and KCl 20 mEq : initial bolus none -, then 150 mL/hr for X1 (NOW).
--- NOTE | 2016-10-23 10:34 | ED MAR SUMMARY ---
..... Medication Administration Record [facility] [address] [place] [address] Patient: PIOTR CRAWLEY Visit ID: [id number] 80y, M Weight: 86.1 kg Height/Length: 72 in BMI: 25.8 ALLERGIES: Penicillins Given 00:58 10/21/2016 Alvin Powell R.N. Medication Administered: ZOFRAN ODT [PO] (ONDANSETRON), Dose: 4 mg Oral Disintegrating Tablets PO. Medication Ordered: Zofran ODT PO 4 mg (NOW). Given 01:19 10/21/2016 Alvin Palacios R.N. Medication Administered: DEMEROL [IVP] (MEPERIDINE HCL), Dose: 25 mg IVP over 2 minute(s), Site: #1 right wrist. Medication Ordered: Demerol IV 25 mg (HIGH ALERT MEDICATION, NOW). Given 02:14 10/21/2016 Tai Frances R.N. Medication Administered: ZOFRAN [IVP] (ONDANSETRON HCL), Dose: 4 mg IVP over 2 minute(s), Site: #1 right wrist. Medication Ordered: Zofran IV 4 mg (NOW). Given 03:59 10/21/2016 Tai Frances R.N. Medication Administered: DEMEROL [IVP] (MEPERIDINE HCL), Dose: 25 mg IVP over 2 minute(s), Site: #1 right wrist. Medication Ordered: Demerol IV 25 mg (HIGH ALERT MEDICATION, NOW). Given 04:00 10/21/2016 Tai Frances R.N. Medication Administered: PROMETHAZINE [IVP], Dose: 25 mg IVP over 2 minute(s), Site: #1 right wrist. Medication Ordered: Promethazine IV 25 mg (HIGH ALERT MEDICATION, NOW). Start 04:56 10/21/2016 Tai Frances R.N. Medication Administered: FLAGYL [IVPB] (METRONIDAZOLE IN NACL), Dose: 500 mg IVPB over 1 hour(s), Rate: 100 mL/hr, Dispensed: 100 mL bag, Site: #1 right wrist. Medication Ordered: Flagyl IV 500 mg/100mL (NOW). Start 05:17 10/21/2016 Tai Frances, RIndiaN. Medication Administered: LEVOFLOXACIN [IVPB], Dose: 500 mg IVPB over 1 hour(s), Rate: 100 mL/hr, Dispensed: 100 mL bag, Site: #1 right wrist. Medication Ordered: Levofloxacin IV 500 mg/100mL (NOW). Start 05:34 10/21/2016 Tai Frances, RIndiaN. Medication Administered: IV D5W 1/2 NS AND KCL 20 MEQ (KCL-NACL IN D5W), Dose: IV Fluids over 10 hour(s), Rate: 150 mL/hr, Dispensed: 1000 mL bag, Site: #1 right wrist. Medication Ordered: IV D5W 1/2 NS and KCl 20 mEq : initial bolus none -, then 150 mL/hr for X1 (NOW).
--- NOTE | 2016-10-23 10:34 | ED MED RECONCILIATION SUMMARY ---
Patient: PIOTR CRAWLEY Medication Reconciliation Report [facility] VisitID: [id number] [address] [place] [place] [address] 80y, M Registration Date/Time: 10/21/2016 Weight: 86.1 kg Height/Length: 72 in. BMI: 25.8 ALLERGIES: Penicillins The patient's Home Medications are listed below: THE FOLLOWING MEDICATIONS NEED TO BE RECONCILED: Diane-[place] Plus Day/Night Oral Montelukast Sodium Oral 10 mg, at bedtime Omeprazole Oral 40 mg, daily Tums Oral The source(s) of the original Home Medication information: patient The following Medications were given to the patient in the Emergency Department: Zofran ODT [PO] PO 4 mg, administered: 10/21/2016 12:58:00 AM Demerol [IVP] IVP 25 mg, administered: 10/21/2016 1:19:00 AM Zofran [IVP] IVP 4 mg, administered: 10/21/2016 2:14:00 AM Demerol [IVP] IVP 25 mg, administered: 10/21/2016 3:59:00 AM PROMETHAZINE [IVP] IVP 25 mg, administered: 10/21/2016 4:00:00 AM Flagyl [IVPB] IVPB bolus 0, then 500 mg 100 mL/hr, administered: 10/21/2016 4:56:00 AM Levofloxacin [IVPB] IVPB bolus 0, then 500 mg 100 mL/hr, administered: 10/21/2016 5:17:00 AM IV D5W 1/2 NS AND KCL 20 MEQ IV Fluids bolus 0, then 150 mL/hr, administered: 10/21/2016 5:34:00 AM The following Medications were prescribed to the patient: None.
--- NOTE | 2016-10-23 10:34 | ED MED RECONCILIATION SUMMARY ---
Patient: PIOTR CRAWLEY Medication Reconciliation Report [facility] VisitID: [id number] [address] [place] [address] 80y, M Registration Date/Time: 10/21/2016 Weight: 86.1 kg Height/Length: 72 in. BMI: 25.8 ALLERGIES: Penicillins The patient's Home Medications are listed below: THE FOLLOWING MEDICATIONS NEED TO BE RECONCILED: Diane-[place] Plus Day/Night Oral Montelukast Sodium Oral 10 mg, at bedtime Omeprazole Oral 40 mg, daily Tums Oral The source(s) of the original Home Medication information: patient The following Medications were given to the patient in the Emergency Department: Zofran ODT [PO] PO 4 mg, administered: 10/21/2016 12:58:00 AM Demerol [IVP] IVP 25 mg, administered: 10/21/2016 1:19:00 AM Zofran [IVP] IVP 4 mg, administered: 10/21/2016 2:14:00 AM Demerol [IVP] IVP 25 mg, administered: 10/21/2016 3:59:00 AM PROMETHAZINE [IVP] IVP 25 mg, administered: 10/21/2016 4:00:00 AM Flagyl [IVPB] IVPB bolus 0, then 500 mg 100 mL/hr, administered: 10/21/2016 4:56:00 AM Levofloxacin [IVPB] IVPB bolus 0, then 500 mg 100 mL/hr, administered: 10/21/2016 5:17:00 AM IV D5W 1/2 NS AND KCL 20 MEQ IV Fluids bolus 0, then 150 mL/hr, administered: 10/21/2016 5:34:00 AM The following Medications were prescribed to the patient: None.
== END 2016-10-23 09:00 | disposition home or self-care (01) | DRG 419 ==
LOC: ED SRH 00:24 → ACUTE2 SRH 04:49 → TRANS SRH 04:49 → ACUTE2 SRH 05:37
PROVIDERS: ADMIT Surgery
PROC: BF101ZZ Fluoroscopy of Bile Ducts using Low Osmolar Contrast (ICD-10-PCS; 2016-10-22)
PROC: 0FT44ZZ Resection of Gallbladder, Percutaneous Endoscopic Approach (ICD-10-PCS; principal; 2016-10-22 11:15)
DX: K80.00 Calculus of gallbladder with acute cholecystitis without obstruction (principal); I44.0 Atrioventricular block, first degree; I45.10 Unspecified right bundle-branch block; R00.1 Bradycardia, unspecified; Z85.09 Personal history of malignant neoplasm of other digestive organs; J44.9 Chronic obstructive pulmonary disease, unspecified; K21.9 Gastro-esophageal reflux disease without esophagitis; F41.9 Anxiety disorder, unspecified
CPT/HCPCS: 50002; 60001; 70002; 80102; 80212; 80248; 82794; 82807; 83125; 83339; 83348; 83587; 83920; 83937; 83982; 84038; 85241; 90004; 90074; 90100; 92235; 92530; 95059

== ENCOUNTER 2017-03-15 10:24 | Outpatient (CLI) | payer OTHER ==
[~2017-03-15 10:24] MED LIST changes: +ALKA-SELTZER PL25 MG PO; +NORCO1 TA1 PO; +TUMS500 MG PO
--- NOTE | 2017-03-15 10:47 | DIAGNOSTIC IMAGING REPORT ---
PROCEDURE: XR CHEST 2 VIEW INDICATION: ALLERGIC RHINITIS/COUGH TECHNIQUE: PA and lateral views. COMPARISON: Chest 03/06/2013 FINDINGS: Lungs are clear. Heart and mediastinum are normal. Thorax is normal. IMPRESSION: 1. Negative chest.
== END 2017-03-15 23:00 | disposition home or self-care (01) ==
LOC: XR SRH 10:24
DX: J30.9 Allergic rhinitis, unspecified (principal); R05 Cough